=== PATIENT | female | born 1945 | race African-American/Black ===

== ENCOUNTER 2019-09-19 12:28 | Emergency (ER) | payer SELFPAY ==
--- NOTE | 2019-09-19 13:07 | EDM.PDOC ---
ED HPI GENERAL MEDICAL PROBLEM - General Chief Complaint: Lower Extremity Injury/Pain Stated Complaint: LOWER RIGHT QUADRANT PAIN & R LEG PAIN Time Seen by Provider: 09/19/19 13:04 Source of Information: Reports: Patient, Family History Limitations: Reports: No Limitations - History of Present Illness INITIAL COMMENTS - FREE TEXT/NARRATIVE: HISTORY AND PHYSICAL: History of present illness: Patient is a 73-year-old female presents the ED with complaint of right leg pain. Son is translating for her. Patient states for the past week she has been having pain in her right groin that radiates down her right anterior thigh. She denies any injury or trauma to the area. Patient is taking Tylenol OTC which does help with the pain. She denies any nausea, vomiting, abdominal pain, fevers, chills, dysuria, hematuria, diarrhea, injury, trauma saddle anesthesia, bowel or bladder incontinence. Patient denies significant past medical or surgical history. Review of systems: As per history of present illness and below otherwise all systems reviewed and negative. Past medical history: As per history of present illness and as reviewed below otherwise noncontributory. Surgical history: As per history of present illness and as reviewed below otherwise noncontributory. Social history: No reported history of drug or alcohol abuse. Family history: As per history of present illness and as reviewed below otherwise noncontributory. Physical exam: General: Patient sitting comfortably in no acute distress and nontoxic appearing HEENT: Atraumatic, normocephalic, pupils reactive, negative for conjunctival pallor or scleral icterus, mucous membranes moist, throat clear, neck supple, nontender, trachea midline. No meningeal signs. Lungs: Clear to auscultation, breath sounds equal bilaterally, chest nontender. Heart: S1S2, regular, negative for clicks, rubs, or overt murmur. Abdomen: Soft, nondistended, nontender. Negative for masses or hepatosplenomegaly. Negative for costovertebral tenderness. No rigidity, rebound , guarding. Pelvis: Stable nontender. Genitourinary: Deferred. Rectal: Deferred. Extremities: Pain to palpation along the right groin. There are no defects or hernias noted. Skin is intact without erythema or warmth. Pain with passive external rotation and extension of the hip. No distal extremity pain. Atraumatic, negative for cords or calf pain. Neurovascular unremarkable. Neuro: Awake, alert, oriented. Cranial nerves II through XII unremarkable. Cerebellum unremarkable. Motor and sensory unremarkable throughout. Exam nonfocal. Notes: Diagnostics: X-ray right hip and pelvis Therapeutics: none Prescriptions: none Impression: Right hip pain Plan: Continue tylenol as needed for pain Follow up with primary care provider, please call the number provided to schedule an appointment Return to ED as needed as discussed Definitive disposition and diagnosis as appropriate pending reevaluation and review of above. R Leg Pain Score (Numeric/FACES): 9 - Related Data Allergies Allergy/AdvReac Type Severity Reaction Status Date / Time No Known Allergies Allergy Verified 09/19/19 12:47 Home Meds: Home Meds . [No Known Home Meds] 09/19/19 [History] Past Medical History Cardiovascular History: Reports: Hypertension - Infectious Disease History Infectious Disease History: Reports: None Social & Family History - Family History Family Medical History: Noncontributory - Tobacco Use Smoking Status *Q: Never Smoker Second Hand Smoke Exposure: No - Caffeine Use Caffeine Use: Reports: None - Recreational Drug Use Recreational Drug Use: No Review of Systems - Review of Systems Review Of Systems: Comprehensive ROS is negative, except as noted in HPI. ED EXAM, GENERAL - Physical Exam Exam: See Below (See dictation) Course - Vital Signs Last Recorded V/S: Last Vital Signs Temp 98 F 09/19/19 12:47 Pulse 82 09/19/19 12:47 Resp 16 09/19/19 12:47 BP 186/93 H 09/19/19 12:47 Pulse Ox 98 09/19/19 12:47 Departure - Departure Time of Disposition: 14:21 Disposition: Home, Self-Care 01 Condition: Good Clinical Impression: Right hip pain - Discharge Information Referrals: PCP,None [Primary Care Provider] - Forms: ED Department Discharge Additional Instructions: The following information is given to patients seen in the emergency department who are being discharged to home. This information is to outline your options for follow-up care. We provide all patients seen in our emergency department with a follow-up referral. The need for follow-up, as well as the timing and circumstances, are variable depending upon the specifics of your emergency department visit. If you don't have a primary care physician on staff, we will provide you with a referral. We always advise you to contact your personal physician following an emergency department visit to inform them of the circumstance of the visit and for follow-up with them and/or the need for any referrals to a consulting specialist. The emergency department will also refer you to a specialist when appropriate. This referral assures that you have the opportunity for follow-up care with a specialist. All of these measure are taken in an effort to provide you with optimal care, which includes your follow-up. Under all circumstances we always encourage you to contact your private physician who remains a resource for coordinating your care. When calling for follow-up care, please make the office aware that this follow-up is from your recent emergency room visit. If for any reason you are refused follow-up, please contact the [facility] Emergency Department at and asked to speak to the emergency department charge nurse. [facility] [address] [place] [address] [place] [address] Continue tylenol as needed for pain Follow up with primary care provider, please call the number provided to schedule an appointment Return to ED as needed as discussed Sepsis Event Note - Evaluation Sepsis Screening Result: No Definite Risk - Focused Exam Vital Signs: Vital Signs Temp Pulse Resp BP Pulse Ox 09/19/19 12:47 98 F 82 16 186/93 H 98 Date Exam was Performed: 09/19/19 Time Exam was Performed: 14:20
--- NOTE | 2019-09-19 14:07 | CR ---
Pelvis and right hip: AP view of the pelvis was obtained as well as AP and frog-leg lateral views the right hip. Mild joint space narrowing is noted within both hips. Degenerative endplate spurring is noted within the visualized lower lumbar spine. Minimal sclerosis is noted within the right sacroiliac joint which is felt compatible with degenerative change. Osteopenia is present. No acute fracture or other abnormality is seen. Impression: 1. Osteopenia and degenerative change as noted above. Diagnostic code #2 This report was dictated in [place] Standard Time
== END 2019-09-19 14:30 | disposition home or self-care (01) ==
LOC: MW.ED 12:28
DX: M25.551 Pain in right hip (principal); I10 Essential (primary) hypertension
CPT/HCPCS: 73502-26-RT; 73502-RT; 99283; 99283-25